=== PATIENT | male | born 1950 | race Caucasian/White ===

== ENCOUNTER → 2016-07-26 | Outpatient (CLI) | payer BC ==
--- NOTE | 2016-07-26 15:32 | US ---
EXAMINATION TYPE: US screen for AAA DATE OF EXAM: 07/26/2016 3:15 PM COMPARISON: CT on PACS CLINICAL HISTORY: Pt states AAA seen on CT study . EXAM MEASUREMENTS: Abdominal Aorta: Proximal: 2.6x 2.3 cm Mid: 5.2 x 4.9 cm Distal: 2.0 x 1.7 cm Bifurcation: 1.3 cm 1.0 cm IMPRESSION: AAA Mid Aorta. Lumen = 2.2 x 2.2 cm
== END | disposition home or self-care (01) ==
LOC: RADUSWWP 14:49
PROVIDERS: ATTEND Family Medicine
DX: I71.4 Abdominal aortic aneurysm, without rupture (principal)
CPT/HCPCS: 93979

== ENCOUNTER 2017-06-06 21:00 | Inpatient (IN) | payer BC, MEDICARE ==
[2017-06-06] MEDS ORDERED: methylPREDNISolone SOD SUCCI 125 MG/2 ML VIAL IV STA (21:20)
[2017-06-06] MEDS ORDERED: IPRATROPIUM-ALBUTEROL 3 ML NEB INHALATION STA (21:20)
[2017-06-06] MEDS ORDERED: HYDROmorphone 1 MG/ML 1 ML SYRINGE IVP STA (21:21)
--- NOTE | 2017-06-06 21:26 | ED ---
SOB HPI - General Chief Complaint: Shortness of Breath Stated Complaint: Back Pain/SOB Time Seen by Provider: 06/06/17 21:15 Source: patient Mode of arrival: ambulatory Limitations: no limitations - History of Present Illness Initial Comments: This 58-year-old white male presents with a complaint of a cough and shortness of breath. He's had this for approximately 10 days. He was seen by his primary care physician last week and was placed on Levaquin. He initially was having a greenish production states that the antibiotics seem to help get rid of the greenish production. Now he is only having a whitish production. He states that he quit smoking yesterday. He does have a history of COPD as well. He denies any fevers. He's been coughing significantly to the point that he thinks that he broke a rib. He has some pain in his inferior most ribs on the left posterior region. He has pain with any cough or increased inspiration in this area. He denies any leg pain or swelling or history of DVT or PE. He denies any anterior chest pain. There is no history of congestive heart failure or other cardiac disease. He relates some relief with a over-the- counter cough medication as well as with his nebulizer machine. He states that he has 2 pills of his Levaquin left. No other complaints or modifying factors. - Related Data Home Medications Medication Instructions Recorded Confirmed Albuterol Inhaler [Ventolin Hfa 1 - 2 puff INHALATION RT-Q6H PRN 06/06/17 Inhaler] Atorvastatin [Lipitor] 10 mg PO HS 06/06/17 06/06/17 Fluticasone/Salmeterol [Advair 1 inhalation PO RT-BID 06/06/17 06/06/17 500-50 Diskus] Losartan/Hydrochlorothiazide 1 tab PO DAILY 06/06/17 06/06/17 [Hyzaar 100-12.5 Tablet] Allergies Allergy/AdvReac Type Severity Reaction Status Date / Time Sulfa (Sulfonamide Allergy Rash/Hives Verified 06/06/17 22:01 Antibiotics) Review of Systems ROS Statement: Those systems with pertinent positive or pertinent negative responses have been documented in the HPI. ROS Other: All systems not noted in ROS Statement are negative. Past Medical History Past Medical History: Hyperlipidemia, Hypertension History of Any Multi-Drug Resistant Organisms: None Reported Past Surgical History: Heart Catheterization With Stent Additional Past Surgical History / Comment(s): femoral stent, aortic stent Past Psychological History: No Psychological Hx Reported Smoking Status: Current every day smoker Past Alcohol Use History: Rare Past Drug Use History: None Reported General Exam - General Exam Comments Initial Comments: GENERAL: The patient is well nourished and well hydrated. VITAL SIGNS: Heart rate, blood pressure, respiratory rate reviewed as recorded in nurse's notes. EYES: Pupils are round and reactive. Extraocular movements are intact. No conjunctival / lid redness or swelling. ENT: No external evidence of injury, swelling, or ecchymosis. Airway is patent. Throat is clear. NECK: Nontender. No swelling or evidence of injury. No subcutaneous emphysema. Trachea is midline. No thyroid mass. HEART: Regular rate and rhythm. Good peripheral pulses. LUNGS/CHEST: There is decreased respirations noted bilaterally. No ecchymosis, subcutaneous emphysema. There is some tenderness noted to the inferior posterior left ribs. ABDOMEN: Abdomen soft without tenderness. No palpable masses or organomegaly. No peritoneal signs. No abdominal wall swelling or ecchymosis. EXTREMITIES: No extremity tenderness. Normal muscle tone and function. No thoracolumbar tenderness. NEUROLOGIC: Sensation is grossly intact. Cranial nerve exam reveals face is symmetrical, tongue is midline, speech is clear. SKIN: No abrasions or ecchymosis is noted. No induration or masses noted. PSYCHIATRIC: Alert and oriented. Appropriate behavior and judgment. Limitations: no limitations Course Vital Signs 06/06/17 06/06/17 06/06/17 21:03 21:36 21:43 Temperature 97.6 F Pulse Rate 95 84 86 Respiratory 20 Rate Blood Pressure 142/73 O2 Sat by Pulse 93 L Oximetry 06/06/17 22:29 Temperature Pulse Rate 80 Respiratory 20 Rate Blood Pressure 179/79 O2 Sat by Pulse 94 L Oximetry Medical Decision Making - Medical Decision Making The patient was seen and examined. All diagnostics were reviewed. An IV is started and he receives 0.5 mg of Dilaudid for his rib pain. He also was placed on a shelter advocate no ectopy is identified. He receives a DuoNeb breathing treatment as well as some Solu-Medrol. The EKG shows a normal sinus rhythm at a rate of 86. There is no acute ST-T wave changes identified. The RI intervals 140, QRS duration is 102, and the QTC intervals 457. The laboratories reviewed and is overall fairly unremarkable except for a elevated d -dimer. A chest x-ray did not show any acute processes. The computed tomography scan of the thorax does not show any evidence of pulmonary embolism. It does show evidence of a pleural consolidation in the left inferior thorax posteriorly. This is where he is having his current pain. There is no evidence of rib fracture. Is felt that he does have a pneumonia in this area. This felt as though he has failed outpatient treatment. He likely has an exacerbation of his COPD as well. He is counseled regarding tobacco abuse. He does see Dr. Barlow from pulmonology on an outpatient basis. The case is discussed with Dr. Quiroz from internal medicine and she is agreeable to admission with antibiotics of Zithromax and Rocephin and Dr. bhakta to consult. - Lab Data Result diagrams: 06/06/17 21:28 06/06/17 21:28 Lab Results 06/06/17 06/06/17 06/06/17 Range/Units 21:28 21:28 21:28 WBC 10.2 (3.8-10.6) k/uL RBC 5.13 (4.30-5.90) m/uL Hgb 14.7 (13.0-17.5) gm/dL Hct 45.6 (39.0-53.0) % MCV 89.0 (80.0-100.0) fL MCH 28.6 (25.0-35.0) pg MCHC 32.2 (31.0-37.0) g/dL RDW 16.0 H (11.5-15.5) % Plt Count 191 (150-450) k/uL Neutrophils % 80 % Lymphocytes % 9 % Monocytes % 5 % Eosinophils % 5 % Basophils % 1 % Neutrophils # 8.2 H (1.3-7.7) k/uL Lymphocytes # 0.9 L (1.0-4.8) k/uL Monocytes # 0.5 (0-1.0) k/uL Eosinophils # 0.5 (0-0.7) k/uL Basophils # 0.1 (0-0.2) k/uL Anisocytosis Slight PT (9.0-12.0) sec INR (<1.2) APTT (22.0-30.0) sec D-Dimer (<0.60) mg/L FEU Sodium 138 (137-145) mmol/L Potassium 3.7 (3.5-5.1) mmol/L Chloride 102 (98-107) mmol/L Carbon Dioxide 28 (22-30) mmol/L Anion Gap 8 mmol/L BUN 26 H (9-20) mg/dL Creatinine 1.30 H (0.66-1.25) mg/dL Est GFR (MDRD) Af Amer >60 (>60 ml/min/1.73 sqM) Est GFR (MDRD) Non-Af 55 (>60 ml/min/1.73 sqM) Glucose 96 (74-99) mg/dL Calcium 9.6 (8.4-10.2) mg/dL Total Bilirubin 0.7 (0.2-1.3) mg/dL AST 25 (17-59) U/L ALT 42 (21-72) U/L Alkaline Phosphatase 72 (38-126) U/L Total Creatine Kinase 221 H (55-170) U/L CK-MB (CK-2) 5.5 H* (0.0-2.4) ng/mL CK-MB (CK-2) Rel Index 2.5 Troponin I <0.012 (0.000-0.034) ng/mL NT-Pro-B Natriuret Pep pg/mL Total Protein 6.1 L (6.3-8.2) g/dL Albumin 3.5 (3.5-5.0) g/dL 06/06/17 06/06/17 Range/Units 21:28 21:28 WBC (3.8-10.6) k/uL RBC (4.30-5.90) m/uL Hgb (13.0-17.5) gm/dL Hct (39.0-53.0) % MCV (80.0-100.0) fL MCH (25.0-35.0) pg MCHC (31.0-37.0) g/dL RDW (11.5-15.5) % Plt Count (150-450) k/uL Neutrophils % % Lymphocytes % % Monocytes % % Eosinophils % % Basophils % % Neutrophils # (1.3-7.7) k/uL Lymphocytes # (1.0-4.8) k/uL Monocytes # (0-1.0) k/uL Eosinophils # (0-0.7) k/uL Basophils # (0-0.2) k/uL Anisocytosis PT 11.8 (9.0-12.0) sec INR 1.2 H (<1.2) APTT 19.0 L (22.0-30.0) sec D-Dimer 1.32 H (<0.60) mg/L FEU Sodium (137-145) mmol/L Potassium (3.5-5.1) mmol/L Chloride (98-107) mmol/L Carbon Dioxide (22-30) mmol/L Anion Gap mmol/L BUN (9-20) mg/dL Creatinine (0.66-1.25) mg/dL Est GFR (MDRD) Af Amer (>60 ml/min/1.73 sqM) Est GFR (MDRD) Non-Af (>60 ml/min/1.73 sqM) Glucose (74-99) mg/dL Calcium (8.4-10.2) mg/dL Total Bilirubin (0.2-1.3) mg/dL AST (17-59) U/L ALT (21-72) U/L Alkaline Phosphatase (38-126) U/L Total Creatine Kinase (55-170) U/L CK-MB (CK-2) (0.0-2.4) ng/mL CK-MB (CK-2) Rel Index Troponin I (0.000-0.034) ng/mL NT-Pro-B Natriuret Pep 390 pg/mL Total Protein (6.3-8.2) g/dL Albumin (3.5-5.0) g/dL Disposition Clinical Impression: Hypoxia, Hypertension, Tobacco abuse, Failure of outpatient treatment, Community acquired pneumonia, Thoracic back pain, Acute exacerbation of chronic obstructive airways disease Disposition: ADMITTED IP TO THIS HOSP Condition: Fair Time of Disposition: 00:13 Decision Date: 06/07/17 Decision Time: 00:13
[2017-06-06] MEDS ORDERED: HYDROmorphone 0.5 MG/0.5 ML SYRINGE IVP STA (21:36)
[2017-06-06 21:43] LABS: Anisocytosis Slight; Basophils # (A) 0.1 k/uL (0-0.2); Basophils % (A) 1 %; CH 29.2; Eosinophils # (A) 0.5 k/uL (0-0.7); Eosinophils % (A) 5 %; HCT 45.6 % (39.0-53.0); HDW 2.32; HGB 14.7 gm/dL (13.0-17.5); Luc # (Auto) 0.09; Luc % (Auto) 1; Lymphocytes # (A) 0.9 k/uL (1.0-4.8); Lymphocytes % (A) 9 %; MCH 28.6 pg (25.0-35.0); MCHC 32.2 g/dL (31.0-37.0); Mean Platelet Volume 7.1; Monocytes # (A) 0.5 k/uL (0-1.0); Monocytes % (A) 5 %; Neutrophils # (A) 8.2 k/uL (1.3-7.7); Neutrophils % (A) 80 %; RBC 5.13 m/uL (4.30-5.90); WBC 10.2 k/uL (3.8-10.6); WBC (Perox) 10.19
[2017-06-06 21:54] LABS: ALT 42 U/L (21-72); AST 25 U/L (17-59); Alkaline Phosphatase 72 U/L (38-126); Anion Gap 8 mmol/L; Blood Urea Nitrogen 26 mg/dL (9-20); Calcium 9.6 mg/dL (8.4-10.2); Carbon Dioxide 28 mmol/L (22-30); Chloride 102 mmol/L (98-107); Glucose 96 mg/dL (74-99); Non-African American GFR(MDRD) 55 (>60 ml/min/1.73 sqM); Potassium 3.7 mmol/L (3.5-5.1); Sodium 138 mmol/L (137-145); Total Bilirubin 0.7 mg/dL (0.2-1.3); Total Protein 6.1 g/dL (6.3-8.2)
[2017-06-06 22:03] LABS: Creatine Kinase 221 U/L (55-170)
--- NOTE | 2017-06-06 22:09 | XR ---
EXAMINATION TYPE: XR chest 2V DATE OF EXAM: 06/06/2017 COMPARISON: 08/26/2012 HISTORY: Difficulty breathing TECHNIQUE: Frontal and lateral views of the chest are obtained. FINDINGS: Heart and mediastinum are normal. Lungs are clear of consolidation. Pulmonary vascularity is normal. Heart size is normal. There are chest leads. Bony thorax is intact. IMPRESSION: Normal chest. No change.
[2017-06-06 22:12] LABS: INR 1.2 (<1.2); Prothrombin Time 11.8 sec (9.0-12.0)
[2017-06-06 22:16] LABS: Troponin I <0.012 ng/mL (0.000-0.034)
[2017-06-06 22:24] LABS: Creatine Kinase MB 5.5 ng/mL (0.0-2.4)
[2017-06-06] MEDS ORDERED: RX INFO: IV CONTRAST WAS GIVEN 1 EACH MISC MISCELLANE PRN (22:50)
--- NOTE | 2017-06-06 23:44 | CT ---
EXAMINATION TYPE: CT angio chest DATE OF EXAM: 06/06/2017 11:20 PM COMPARISON: NONE HISTORY: cough, elevated d-dimer CT DLP: 389 mGycm Automated exposure control for dose reduction was used. CONTRAST: CTA scan of the thorax is performed with IV Contrast, patient injected with 70 mL of Visipaque 320, p ulmonary embolism protocol. There are 3-D post processed images.. FINDINGS: There is mild bullous emphysema. There is no evidence of a pulmonary mass. Heart size is normal. Ther e is no pericardial effusion. There is no pleural effusion. There is some mild subpleural interstitia l density at the left posterior lung base. Thoracic aorta appears normal. There is no sign of aneurysm or dissection. Ascending aorta measures 3 .8 cm. I see no filling defects in the pulmonary arteries. There is no mediastinal adenopathy. There are no hilar masses. There are a few bronchial lymph nodes that measure up to 1 cm. The bony thorax appears intact. IMPRESSION: NO EVIDENCE OF PULMONARY EMBOLISM. THERE IS MILD PLEURAL REACTION AND ATELECTASIS AT THE LEFT POSTERI OR LUNG BASE. MINIMAL ATHEROSCLEROTIC VASCULAR DISEASE. EMPHYSEMA.
[2017-06-07] MEDS ORDERED: PNEUMONIA PROTOCOL UTILIZED 1 EACH MISC PO PRN (00:19)
[2017-06-07] MEDS ORDERED: IPRATROPIUM-ALBUTEROL 3 ML NEB INHALATION PRN (00:19)
[2017-06-07] MEDS ORDERED: cefTRIAXone IN SWFI 1,000 MG/10 ML SYRINGE IVP STA (00:19)
[2017-06-07] MEDS ORDERED: HYDROcodone/APAP 7.5-325MG 1 EACH TAB PO PRN (00:24)
[2017-06-07 01:56] VITALS: RESP 20
[2017-06-07] MEDS ORDERED: SYMBICORT 160-4.5 MCG INHALER INHALATION SCH (08:00)
[2017-06-07 08:27] VITALS: BP 148/72; TEMP 98.4
[2017-06-07] MEDS ORDERED: NON-FORMULARY DRUG (Losartan/Hydrochlorothiazide [Hyzaar 100-12.5 Tablet] 1 TAB) PO SCH (09:00)
[2017-06-07] MEDS ORDERED: HYDROCHLOROTHIAZIDE 12.5 MG CAP PO SCH (09:00)
[2017-06-07] MEDS ORDERED: AZITHROMYCIN 500 MG in SODIUM CHLORIDE 0.9% 250 ML IVPB SCH (09:00)
[2017-06-07] MEDS ORDERED: methylPREDNISolone SOD SUCCI 125 MG/2 ML VIAL IV SCH ×2 (09:00→21:00)
[2017-06-07] MEDS ORDERED: ENOXAPARIN 40 MG/0.4 ML SYRINGE SQ SCH (09:00)
[2017-06-07] MEDS ORDERED: LOSARTAN 50 MG TAB PO SCH (09:00)
--- NOTE | 2017-06-07 10:17 | P.CNPUL ---
History of Present Illness Consult date: 06/07/17 Reason for consult: dyspnea, cough, chest pain Chief complaint: Cough, rib pain History of present illness: This is a 66-year-old gentleman who presented emergency department complaining of cough and shortness of breath. The patient states this started about 8 days ago and he went to see his primary care physician. His primary care physician started him on Levaquin which she has taken for the last 8 days. He was also given steroids. He states his phlegm was green however it is now white. He denies any fevers or chills. He does have a history of COPD and asthma and follows with Dr. MEERA Barlow in the office. He states he smoked 1 pack per day for about 50 years. He states he had severe left-sided rib pain and felt like he had broken a rib. He came to the hospital when the pain became unbearable. He does take Advair, Ventolin, albuterol nebs at home. He does not wear home oxygen. He states he does have wheezing on and off. Review of Systems All systems: negative Past Medical History Past Medical History: Hyperlipidemia, Hypertension, Pneumonia, Respiratory Disorder History of Any Multi-Drug Resistant Organisms: None Reported Past Surgical History: Heart Catheterization With Stent Additional Past Surgical History / Comment(s): femoral stent, aortic stent Past Anesthesia/Blood Transfusion Reactions: No Reported Reaction Date of Last Stent Placement:: aug 25 2016 Past Psychological History: No Psychological Hx Reported Smoking Status: Former smoker Past Alcohol Use History: Rare Past Drug Use History: None Reported - Past Family History Mother Family Medical History: Coronary Artery Disease (CAD), Hypertension Medications and Allergies Home Medications Medication Instructions Recorded Confirmed Type Albuterol Inhaler [Ventolin Hfa 1 - 2 puff INHALATION RT-Q6H PRN 06/06/17 History Inhaler] Atorvastatin [Lipitor] 10 mg PO HS 06/06/17 06/06/17 History Fluticasone/Salmeterol [Advair 1 inhalation PO RT-BID 06/06/17 06/06/17 History 500-50 Diskus] Losartan/Hydrochlorothiazide 1 tab PO DAILY 06/06/17 06/06/17 History [Hyzaar 100-12.5 Tablet] Allergies Allergy/AdvReac Type Severity Reaction Status Date / Time Sulfa (Sulfonamide Allergy Rash/Hives Verified 06/06/17 22:01 Antibiotics) Physical Exam Osteopathic Statement: *. No significant issues noted on an osteopathic structural exam other than those noted in the History and Physical/Consult. Vitals: Vital Signs Temp Pulse Pulse Resp BP BP Pulse Ox 06/07/17 07:16 98 96 06/07/17 07:00 98.4 F 78 20 148/72 95 06/07/17 02:00 84 20 06/07/17 01:45 97.3 F L 84 20 135/65 06/07/17 00:43 81 132/63 95 06/07/17 00:21 97.7 F 81 18 132/63 94 L 06/06/17 22:29 80 20 179/79 94 L 06/06/17 21:43 86 06/06/17 21:36 84 06/06/17 21:03 97.6 F 95 20 142/73 93 L Intake and Output 06/06/17 06/07/17 06/07/17 22:59 06:59 14:59 Other: # Voids 1 Weight 92.986 kg 95.708 kg Gen.: Patient is alert and oriented 3, no acute distress, obese Cardiovascular: Regular rate and rhythm, S1/S2 Lungs: Diminished breath sounds bilaterally no wheezes rales or rhonchi Abdomen: Soft nontender nondistended positive bowel sounds Extremities: No edema Results - Laboratory Findings CBC and BMP: 06/06/17 21:28 06/06/17 21:28 PT/INR, D-dimer PT 11.8 sec (9.0-12.0) 06/06/17 21:28 INR 1.2 (<1.2) H 06/06/17 21:28 D-Dimer 1.32 mg/L FEU (<0.60) H 06/06/17 21:28 Abnormal lab findings: Abnormal Labs 06/06/17 06/06/17 06/06/17 21:28 21:28 21:28 RDW 16.0 H Neutrophils # 8.2 H Lymphocytes # 0.9 L INR APTT D-Dimer BUN 26 H Creatinine 1.30 H Total Creatine Kinase 221 H CK-MB (CK-2) 5.5 H* Total Protein 6.1 L 06/06/17 21:28 RDW Neutrophils # Lymphocytes # INR 1.2 H APTT 19.0 L D-Dimer 1.32 H BUN Creatinine Total Creatine Kinase CK-MB (CK-2) Total Protein - Diagnostic Findings Chest x-ray: report reviewed, image reviewed CT scan - chest: report reviewed, image reviewed Assessment and Plan Assessment: Acute exacerbation of COPD Acute exacerbation of asthma, severe persistent Tracheobronchitis - resolving Pleurisy Atelectasis Active tobacco abuse Hypertension Dyslipidemia Obesity Coronary artery disease Peripheral vascular disease O2 to maintain saturation greater than or equal to 90% Bronchodilators Pulmicort Solu-Medrol Anti-inflammatories - Toradol Pain control Incentive spirometry and pulmonary hygiene Smoking cessation is highly recommended No need for ABX from pulmonary standpoint - patient has had 8 days of Levaquin Continue patient's home medications Thank you for this consultation. We will continue to follow along.
[2017-06-07 11:57] VITALS: PULSE 88
[2017-06-07] MEDS ORDERED: IPRATROPIUM-ALBUTEROL 3 ML NEB INHALATION SCH (12:00)
[2017-06-07] MEDS ORDERED: KETOROLAC 30 MG/ML 1 ML VIAL IVP SCH (12:00)
--- NOTE | 2017-06-07 16:02 | P.HPIM ---
History of Present Illness H&P Date: 06/07/17 Chief Complaint: Chest pain HISTORY AND PHYSICAL AND DISCHARGE SUMMARY: This is a 66-year-old male patient of Dr. Patrick Pineda with a past medical history of COPD, hyperlipidemia, hypertension, pneumonia, chest and abdominal aneurysm status post stenting. Patient gives history that 8 days ago he was seen by Dr. Pineda was complaining of cough with green sputum production and was placed on antibiotics and steroids. Subsequently he developed pain in his chest he thought he broke a rib he was coughing so hard. He has taken a cough suppressan . His became very concerned about him and wanted to come into the hospital for evaluation. Patient denies having any lower extremity edema, no fever or chills, a little short of breath. He is able to ambulate without difficulty. He denies any dizziness. No diarrhea or constipation. He states the pain was so bad it dropped him to his knees. His white count was normal. Troponin negative. Chest x-ray was normal. CTA of the chest showed no evidence of pallor embolism. Mild pleural reaction and atelectasis at the left posterior lung base. Minimal atherosclerotic vascular disease. Emphysema. Patient was placed on the Med[facility] floor and was seen in consultation by Dr. Chapman and she recommended no antibiotics. Patient was very anxious to be discharged. He states his pain was improved. Patient will be discharged home today in stable condition. Review of Systems All systems: negative Constitutional: Denies chills, Denies fever Eyes: denies blurred vision, denies pain Ears, nose, mouth and throat: Denies headache, Denies sore throat Cardiovascular: Reports chest pain, Reports shortness of breath Respiratory: Denies cough Gastrointestinal: Denies abdominal pain, Denies diarrhea, Denies nausea, Denies vomiting Musculoskeletal: Denies myalgias Integumentary: Denies pruritus, Denies rash Neurological: Denies numbness, Denies weakness Psychiatric: Denies anxiety, Denies depression Endocrine: Denies fatigue, Denies weight change Past Medical History Past Medical History: COPD, Hyperlipidemia, Hypertension, Pneumonia Additional Past Medical History / Comment(s): Thoracic and abdominal aortic aneurysm History of Any Multi-Drug Resistant Organisms: None Reported Past Surgical History: Cholecystectomy, Heart Catheterization With Stent Additional Past Surgical History / Comment(s): femoral stent/bypass, aortic stent Past Anesthesia/Blood Transfusion Reactions: No Reported Reaction Date of Last Stent Placement:: aug 25 2016 Past Psychological History: No Psychological Hx Reported Smoking Status: Former smoker Past Alcohol Use History: Rare Past Drug Use History: None Reported - Past Family History Mother Family Medical History: Coronary Artery Disease (CAD), Hypertension Additional Family Medical History / Comment(s): Mother from massive coronary with history of hypertension. Father Additional Family Medical History / Comment(s): Father from an abdominal aneurysm. He had history of rectal cancer. Sister(s) Additional Family Medical History / Comment(s): Patient has 2 sisters both have COPD and one also has coronary artery disease. Patient does not have any brothers. Patient has one son that is overweight. Medications and Allergies Home Medications Medication Instructions Recorded Confirmed Type Albuterol Inhaler [Ventolin Hfa 1 - 2 puff INHALATION RT-Q6H PRN 06/06/17 History Inhaler] Atorvastatin [Lipitor] 10 mg PO HS 06/06/17 06/06/17 History Fluticasone/Salmeterol [Advair 1 inhalation PO RT-BID 06/06/17 06/06/17 History 500-50 Diskus] Losartan/Hydrochlorothiazide 1 tab PO DAILY 06/06/17 06/06/17 History [Hyzaar 100-12.5 Tablet] Famotidine [Pepcid] 20 mg PO BID #30 tablet 06/07/17 Rx Naproxen 250 mg PO BID #60 tablet 06/07/17 Rx predniSONE 40 mg PO DAILY #10 tab 06/07/17 Rx Allergies Allergy/AdvReac Type Severity Reaction Status Date / Time Sulfa (Sulfonamide Allergy Rash/Hives Verified 06/06/17 22:01 Antibiotics) Physical Exam Vitals: Vital Signs Temp Pulse Pulse Resp BP BP Pulse Ox 06/07/17 07:16 98 96 06/07/17 07:00 98.4 F 78 20 148/72 95 06/07/17 02:00 84 20 06/07/17 01:45 97.3 F L 84 20 135/65 06/07/17 00:43 81 132/63 95 06/07/17 00:21 97.7 F 81 18 132/63 94 L 06/06/17 22:29 80 20 179/79 94 L 06/06/17 21:43 86 06/06/17 21:36 84 06/06/17 21:03 97.6 F 95 20 142/73 93 L Intake and Output 06/06/17 06/07/17 06/07/17 22:59 06:59 14:59 Intake Total 240 Balance 240 Intake: Oral 240 Other: # Voids 1 Weight 92.986 kg 95.708 kg Gen: This is a 66-year-old male patient sitting up in bed and appears to be in no acute distress. No respiratory distress noted. HEENT: Head is atraumatic, normocephalic. Pupils equal, round. Sclerae is anicteric. NECK: Supple. No JVD. No lymphadenopathy. No thyromegaly. LUNGS: Diminished. No wheezes or rhonchi. No intercostal retractions. HEART: Regular rate and rhythm. No murmur. ABDOMEN: Soft. Bowel sounds are present. No masses. No tenderness. EXTREMITIES: No pedal edema. No calf tenderness. NEUROLOGICAL: Patient is awake, alert and oriented x3. Cranial nerves 2 through 12 are grossly intact. Results CBC & Chem 7: 06/06/17 21:28 06/06/17 21:28 Labs: Abnormal Lab Results - Last 24 Hours (Table) 06/06/17 06/06/17 06/06/17 Range/Units 21:28 21:28 21:28 RDW 16.0 H (11.5-15.5) % Neutrophils # 8.2 H (1.3-7.7) k/uL Lymphocytes # 0.9 L (1.0-4.8) k/uL INR (<1.2) APTT (22.0-30.0) sec D-Dimer (<0.60) mg/L FEU BUN 26 H (9-20) mg/dL Creatinine 1.30 H (0.66-1.25) mg/dL Total Creatine Kinase 221 H (55-170) U/L CK-MB (CK-2) 5.5 H* (0.0-2.4) ng/mL Total Protein 6.1 L (6.3-8.2) g/dL 06/06/17 Range/Units 21:28 RDW (11.5-15.5) % Neutrophils # (1.3-7.7) k/uL Lymphocytes # (1.0-4.8) k/uL INR 1.2 H (<1.2) APTT 19.0 L (22.0-30.0) sec D-Dimer 1.32 H (<0.60) mg/L FEU BUN (9-20) mg/dL Creatinine (0.66-1.25) mg/dL Total Creatine Kinase (55-170) U/L CK-MB (CK-2) (0.0-2.4) ng/mL Total Protein (6.3-8.2) g/dL Thrombosis Risk Factor Assmnt - Choose All That Apply Any of the Below Risk Factors Present?: Yes Each Factor Represents 1 point: Abnormal pulmonary function (COPD), Obesity ( BMI >25), Serious lung disease incl. pneumonia (< 1month) Other Risk Factors: Yes Each Risk Factor Represents 2 Points: Age 61-74 years Other congenital or acquired thrombophilia - If yes, enter type in comment: No Thrombosis Risk Factor Assessment Total Risk Factor Score: 5 Thrombosis Risk Factor Assessment Level: High Risk Assessment and Plan Plan: 1. Pleuritic-like chest pain. Prednisone 40 mg daily 5, Naproxen 250 mg twice daily and Pepcid ordered. 2. COPD. Continue Ventolin inhaler and Advair. 3. Hyperlipidemia. Continue Lipitor. 4. Hypertension. Continue Hyzaar. Patient will be admitted to the hospital for a minimum of 2 night stay. Discharge plan: RETURN HOME Impression and plan of care have been directed as dictated by the signing physician. Kourtney Jack nurse practitioner acting as scribe for signing physician.
[2017-06-07] MEDS ORDERED: BUDESONIDE 0.5 MG/2 ML NEBU INHALATION SCH (20:00)
[2017-06-07] MEDS ORDERED: ATORVASTATIN 10 MG TAB PO SCH (21:00)
[2017-06-08] MEDS ORDERED: cefTRIAXone IN SWFI 1,000 MG/10 ML SYRINGE IVP SCH (04:00)
[2017-06-08] MEDS ORDERED: PANTOPRAZOLE 40 MG TABLET PO SCH (07:30)
== END 2017-06-07 14:13 | disposition home or self-care (01) | DRG 191 ==
LOC: EC 21:00 → 4MS4W 06-07 00:19
PROVIDERS: ADMIT Internal Medicine; ATTEND Internal Medicine
DX: J44.1 Chronic obstructive pulmonary disease with (acute) exacerbation (principal); J45.51 Severe persistent asthma with (acute) exacerbation; J98.11 Atelectasis; I10 Essential (primary) hypertension; E78.5 Hyperlipidemia, unspecified; E66.9 Obesity, unspecified; I25.10 Atherosclerotic heart disease of native coronary artery without angina pectoris; I73.9 Peripheral vascular disease, unspecified; R09.1 Pleurisy; I71.4 Abdominal aortic aneurysm, without rupture; F17.200 Nicotine dependence, unspecified, uncomplicated; Z68.30 Body mass index [BMI] 30.0-30.9, adult; Z79.899 Other long term (current) drug therapy; Z88.2 Allergy status to sulfonamides; Z95.5 Presence of coronary angioplasty implant and graft; Z82.49 Family history of ischemic heart disease and other diseases of the circulatory system
CPT/HCPCS: 36415; 71020; 71275; 80053; 82550; 82553; 83880; 84484; 85025; 85379; 85610; 85730; 87040; 87070; 87205; 93005; 94640; 94760; 96374; 96375; 99285

== ENCOUNTER → 2018-02-23 | Day surgery (SDC) | payer BC, MEDICARE ==
[2018-02-22 08:46] VITALS: BMI 28.7
[~2018-02-23] MED LIST: LACTATED RINGERS 1,000 ML IV SCH; LIDOCAINE 1% 20 ML VIAL (10MG/ML) FOR IV START INTRADERMA PRN; LIDOCAINE 1% INJ 10MG/ML (20 ML MDV) ONE; PROPOFOL 10 MG/ML 20 ML VIAL IV ONE
[2018-02-23 11:49] VITALS: RESP 16; TEMP 97.3
--- NOTE | 2018-02-23 13:14 | P.PCN ---
Date of Procedure: 02/23/18 Procedure(s) Performed: BRIEF HISTORY: Patient is a 67-year-old pleasant male, scheduled for an elective colonoscopy as a part of value should of prior history of colon polyps. Last colonoscopy was 6 years ago. PROCEDURE PERFORMED: Colonoscopy with snare polypectomy. PREOPERATIVE DIAGNOSIS: History of colon polyps IV sedation per Anesthesia. PROCEDURE: After informed consent was obtained, the patient, was brought into the endoscopy unit. IV sedation was administered by Anesthesia under continuous monitoring. Digital rectal examination was normal. Initially the Olympus CF- 160 flexible video colonoscope was then inserted in the rectum, gradually advanced into the cecum without any difficulty. Careful examination was performed as the scope was gradually being withdrawn. Ileocecal valve and the appendiceal orifice were visualized and appeared normal. Prep was excellent. Mucosa of the cecum, appeared normal. Ascending colon there was a 5 mm sessile polyp removed by snare polypectomy. In the proximal transverse colon there were 2 polyps both of which were sessile measuring 2-3 mm in size removed by snare polypectomy. In the proximal sigmoid colon at 4o cm from the anal verge there was a 1 cm broad-based polyp removed by snare polypectomy. In the proximal rectosigmoid colon at 25 cm from the anal verge there was another 1 cm polyp removed by snare polypectomy. Scattered sigmoid diverticulosis seen. Rest of the ascending colon, transverse colon, descending colon, sigmoid colon, and rectum appeared normal. Retroflexion was performed in the rectum and no lesions were seen. Scattered sigmoid diverticulosis seen. The patient tolerated the procedure well. IMPRESSION: 5 mm sessile ascending colon polyp serous was snare polypectomy 2-3 mm 2 transverse colon polyps status post polypectomy 1 cm proximal sigmoid colon polyp serous was snare polypectomy 1 cm pedunculated proximal rectosigmoid polyp status post polypectomy Scattered sigmoid diverticulosis RECOMMENDATIONS: Findings of this examination were discussed with the patient well as her family. He was advised to follow with the biopsy results. He can have a repeat colonoscopy in 3 years.
[2018-02-23 13:19] VITALS: PULSE 78
[2018-02-23 13:28] VITALS: BP 118/72
== END ==
LOC: ORWHC2ENDO 10:52
PROVIDERS: ATTEND Internal Medicine Gastroenterology
DX: Z12.11 Encounter for screening for malignant neoplasm of colon (principal); D12.5 Benign neoplasm of sigmoid colon; D12.3 Benign neoplasm of transverse colon; D12.7 Benign neoplasm of rectosigmoid junction; K63.5 Polyp of colon; K57.30 Diverticulosis of large intestine without perforation or abscess without bleeding; Z86.010 Personal history of colon polyps; I10 Essential (primary) hypertension; E78.5 Hyperlipidemia, unspecified; J44.9 Chronic obstructive pulmonary disease, unspecified; Z72.0 Tobacco use; I73.9 Peripheral vascular disease, unspecified; I71.6 Thoracoabdominal aortic aneurysm, without rupture; Z79.899 Other long term (current) drug therapy; Z88.2 Allergy status to sulfonamides
CPT/HCPCS: 88305; 45385; J2001; J2704; 45380

== ENCOUNTER 2019-03-17 12:37 | Emergency (ER) | payer BC ==
[2019-03-17 13:01] VITALS: RESP 18; TEMP 97.6
[2019-03-17] MEDS ORDERED: SODIUM CHLORIDE 0.9% 500 ML 500 ML IV ONE (13:07)
[2019-03-17] MEDS ORDERED: HYDROcodone/APAP 7.5-325MG 1 EACH TAB PO ONE (13:25)
--- NOTE | 2019-03-17 13:29 | ED ---
Extremity Problem HPI - General Chief complaint: Extremity Problem,Nontraumatic Stated complaint: Leg pain Time Seen by Provider: 03/17/19 12:52 Source: patient, RN notes reviewed Mode of arrival: wheelchair Limitations: no limitations - History of Present Illness Initial comments: 68-year-old male presents emergency Department chief complaint of right leg pain. Patient states it's been progressive worsening of last 1 month. Patient has a history of small bypass in the right and states pain seems similar to his history. Patient states that he has a follow-up in May with his surgeon at [facility]. Patient denies any discoloration of his lower extremity patient states pain is worse with movement. Patient denies any swelling, fever or chill s no trauma. - Related Data Home Medications Medication Instructions Recorded Confirmed Albuterol Inhaler [Ventolin Hfa 1 - 2 puff INHALATION RT-Q6H PRN 06/06/17 Inhaler] Atorvastatin [Lipitor] 10 mg PO HS 06/06/17 02/23/18 Fluticasone/Salmeterol [Advair 1 puff INHALATION RT-BID 06/06/17 02/23/18 500-50 Diskus] Albuterol Nebulized [Ventolin 2.5 mg INHALATION RT-QID 06/13/17 02/23/18 Nebulized] Losartan/Hydrochlorothiazide 1 tab PO DAILY 06/13/17 02/23/18 [Losartan-Hctz 100-25 mg Tab] Montelukast [Singulair] 10 mg PO HS 06/13/17 02/23/18 Previous Rx's Medication Instructions Recorded Cyclobenzaprine [Flexeril] 10 mg PO TID PRN #15 tab 03/17/19 HYDROcodone/APAP 10-325MG [[place] 1 tab PO Q6H PRN #15 tab 03/17/19 10-325] HYDROcodone/APAP 10-325MG [[place] 1 tab PO Q6H PRN #15 tab 03/17/19 10-325] Ibuprofen [Motrin] 600 mg PO Q8HR PRN #30 tab 03/17/19 Allergies Allergy/AdvReac Type Severity Reaction Status Date / Time Sulfa (Sulfonamide Allergy Rash/Hives Verified 03/17/19 13:01 Antibiotics) Review of Systems ROS Statement: Those systems with pertinent positive or pertinent negative responses have been documented in the HPI. ROS Other: All systems not noted in ROS Statement are negative. Past Medical History Past Medical History: COPD, Hyperlipidemia, Hypertension, Pneumonia Additional Past Medical History / Comment(s): Thoracic and abdominal aortic aneurysm History of Any Multi-Drug Resistant Organisms: None Reported Past Surgical History: Cholecystectomy, Heart Catheterization With Stent, Orthopedic Surgery Additional Past Surgical History / Comment(s): femoral stent/bypass, aortic stent,rt shoulder injury Past Anesthesia/Blood Transfusion Reactions: No Reported Reaction Date of Last Stent Placement:: aug 25 2016 Past Psychological History: No Psychological Hx Reported Smoking Status: Current every day smoker Past Alcohol Use History: Occasional - Past Family History Mother Family Medical History: Coronary Artery Disease (CAD), Hypertension Additional Family Medical History / Comment(s): Mother from massive coronary with history of hypertension. Father Additional Family Medical History / Comment(s): Father from an abdominal aneurysm. He had history of rectal cancer. Sister(s) Additional Family Medical History / Comment(s): Patient has 2 sisters both have COPD and one also has coronary artery disease. Patient does not have any brothers. Patient has one son that is overweight. General Exam Limitations: no limitations General appearance: alert, in no apparent distress Head exam: Present: atraumatic, normocephalic, normal inspection Respiratory exam: Present: normal lung sounds bilaterally. Absent: respiratory distress, wheezes, rales, rhonchi, stridor Cardiovascular Exam: Present: regular rate, normal rhythm, normal heart sounds. Absent: systolic murmur, diastolic murmur, rubs, gallop, clicks GI/Abdominal exam: Present: soft, normal bowel sounds. Absent: distended, tenderness, guarding, rebound, rigid Extremities exam: Present: other (Patient's full range of motion of the right extremity, posterior tibialis pulses palpable no dorsal pedis pulse palpable. Full strength equal bilaterally) Back exam: Present: full ROM. Absent: tenderness, paraspinal tenderness, vertebral tenderness Skin exam: Present: warm, dry, intact, normal color. Absent: rash Course Vital Signs 03/17/19 03/17/19 12:56 14:32 Temperature 97.6 F Pulse Rate 86 88 Respiratory 18 18 Rate Blood Pressure 152/83 138/77 O2 Sat by Pulse 94 L 98 Oximetry Medical Decision Making - Medical Decision Making 68-year-old male presents emergency Department with chief complaint of right leg pain. Patient's pain is progressively last 1 month. Patient did have labs and CT given the fact that he's had a history of fem-pop bypass. Patient's bypasses patently open. Patient has full flow on his right leg. There is questionable thrombus in his left posterior tibial though there is a 30 pulse with Doppler. This is felt to be chronic in nature and he has no pain or sympt oms on the left leg. Patient symptoms may be related to nerve pain as this is not reproducible and he does have complaints of some back discomfort. He has no red flag symptoms include bowel bladder incontinence or retention. Patient be treated with pain medication advised follow-up with his vascular surgeon and will be given referral to Dr. Roth for orthospine. - Lab Data Result diagrams: 03/17/19 13:27 03/17/19 13:27 Lab Results 03/17/19 03/17/19 Range/Units 13:27 13:27 WBC 6.9 (3.8-10.6) k/uL RBC 5.56 (4.30-5.90) m/uL Hgb 15.5 (13.0-17.5) gm/dL Hct 47.0 (39.0-53.0) % MCV 84.5 (80.0-100.0) fL MCH 27.9 (25.0-35.0) pg MCHC 33.0 (31.0-37.0) g/dL RDW 15.2 (11.5-15.5) % Plt Count 254 (150-450) k/uL Neutrophils % 75 % Lymphocytes % 14 % Monocytes % 7 % Eosinophils % 2 % Basophils % 1 % Neutrophils # 5.1 (1.3-7.7) k/uL Lymphocytes # 0.9 L (1.0-4.8) k/uL Monocytes # 0.5 (0-1.0) k/uL Eosinophils # 0.2 (0-0.7) k/uL Basophils # 0.1 (0-0.2) k/uL Sodium 136 L (137-145) mmol/L Potassium 5.0 (3.5-5.1) mmol/L Chloride 99 (98-107) mmol/L Carbon Dioxide 24 (22-30) mmol/L Anion Gap 13 mmol/L BUN 21 H (9-20) mg/dL Creatinine 1.19 (0.66-1.25) mg/dL Est GFR (CKD-EPI)AfAm 71 (>60 ml/min/1.73 sqM) Est GFR (CKD-EPI)NonAf 62 (>60 ml/min/1.73 sqM) Glucose 83 (74-99) mg/dL Calcium 9.5 (8.4-10.2) mg/dL Disposition Clinical Impression: Leg pain, right, Lumbar radicular pain, Arterial vascular disease Disposition: HOME SELF-CARE Condition: Stable Instructions (If sedation given, give patient instructions): Leg Pain (ED) Additional Instructions: Follow-up with your vascular surgeon this week for your leg pain. Please return to the Emergency Department if symptoms worsen or any other concerns. Prescriptions: Cyclobenzaprine [Flexeril] 10 mg PO TID PRN #15 tab PRN Reason: Muscle Spasm Ibuprofen [Motrin] 600 mg PO Q8HR PRN #30 tab PRN Reason: Pain HYDROcodone/APAP 10-325MG [[place] 10-325] 1 tab PO Q6H PRN #15 tab PRN Reason: pain HYDROcodone/APAP 10-325MG [[place] 10-325] 1 tab PO Q6H PRN #15 tab PRN Reason: pain Is patient prescribed a controlled substance at d/c from ED?: Yes When asked, does pt state using other controlled substances?: No If prescribed controlled substance>3 days was MAPS reviewed?: Prescribed <3 Days If opioid is for acute pain is fill amount 7 days or less?: Yes If Rx opioid, was Start Talking consent form obtained?: Yes Referrals: Patrick Pineda MD [Primary Care Provider] - 1-2 days Alonso Santiago DO [Doctor of Osteopathic Medicine] - 1-2 days Time of Disposition: 15:16
[2019-03-17 13:35] LABS: Basophils # (A) 0.1 k/uL (0-0.2); Basophils % (A) 1 %; Eosinophils # (A) 0.2 k/uL (0-0.7); Eosinophils % (A) 2 %; HGB 15.5 gm/dL (13.0-17.5); Lymphocytes # (A) 0.9 k/uL (1.0-4.8); Lymphocytes % (A) 14 %; MCH 27.9 pg (25.0-35.0); MCV 84.5 fL (80.0-100.0); Mean Platelet Volume 6.5; Monocytes # (A) 0.5 k/uL (0-1.0); Monocytes % (A) 7 %; Neutrophils # (A) 5.1 k/uL (1.3-7.7); Neutrophils % (A) 75 %; Platelet Count 254 k/uL (150-450); RBC 5.56 m/uL (4.30-5.90); RDW 15.2 % (11.5-15.5); WBC 6.9 k/uL (3.8-10.6)
[2019-03-17 13:45] LABS: Calcium 9.5 mg/dL (8.4-10.2)
[2019-03-17] MEDS ORDERED: MORPHINE SULFATE 4 MG/ML SYRINGE IVP STA (14:32)
[2019-03-17] MEDS ORDERED: ONDANSETRON 4 MG/2 ML VIAL IVP STA (14:32)
[2019-03-17 14:33] VITALS: BP 138/77; PULSE 88
--- NOTE | 2019-03-17 14:43 | CT ---
EXAMINATION TYPE: CT angio abd aorta w/Runoff DATE OF EXAM: 03/17/2019 COMPARISON: None HISTORY: Right calf pain. History of femoral bypass. CT DLP: 4037.7 mGycm, Automated Exposure Control for Dose Reduction was Utilized. CONTRAST: CT scan of the abdomen and pelvis down to the bottom of the feet is performed without oral and withou t and with IV Contrast, patient injected with 100 mL of Isovue 370. FINDINGS: There are 3-D post processed images. There is a stent in the mid abdominal aorta. There is mild aneur ysm of the midabdominal aorta measures up to 3.8 cm. The stent is widely patent. There is some thromb us within the stent without significant luminal narrowing. There is patency of the celiac artery and superior mesenteric artery. There is bilateral patency of the renal arteries. There is complete occlu tanya of the right common iliac artery. There is femoral-femoral bypass graft which appears patent. Th ere is arterial flow in the profunda femoris and superficial femoral arteries. There is diffuse plaqu e formation with luminal narrowing in the femoral arteries bilaterally. Stenosis is more than 50%. Th ere is bilateral arterial flow in the popliteal arteries. There is diffuse plaque in the popliteal ar teries. There is patency of the tibial arteries on the tibial artery trifurcation. There is bilateral anterio r tibial artery flow at the ankle. There is no flow seen in the left side posterior tibial artery. Th ere is arterial flow in the right side posterior tibial artery at the ankle. There is bilateral flow in the peroneal arteries. Bladder distends smoothly. There is no inguinal hernia. There is no sign of pelvic mass. I see no int estinal wall thickening. There is no mesenteric edema. There is no sign of ascites or free air. Kidneys have normal size and contour. There is no hydronephrosis. There is 2 cm cortical cyst posteri or left kidney. Spleen is intact. Liver is intact. Bile ducts are not dilated. There are clips from c holecystectomy. Stomach is intact. Lung bases show some interstitial infiltrate in the left lower lob e consistent with scarring and subsegmental atelectasis. There is no pleural effusion. IMPRESSION: Abdominal aortic aneurysm. Stent appears in good position with minimal thrombus. No evidence of aorti c stenosis. Thrombosis right iliac artery with filling of the right femoral artery through the bypass graft which appears widely patent. Diffuse plaque formation in the femoral arteries bilaterally with stenoses probably up to 60-70%. Thrombosis left posterior tibial artery.
[2019-03-17] MEDS ORDERED: ORPHENADRINE 30 MG/ML 2 ML VIAL IVP STA (15:02)
[2019-03-17] MEDS ORDERED: KETOROLAC 30 MG/ML 1 ML VIAL IVP STA (15:02)
[2019-03-17 16:42] LABS: Partial Thromboplastin Time 25.7 sec (22.0-30.0); Prothrombin Time 10.8 sec (9.0-12.0)
== END 2019-03-17 16:05 | disposition home or self-care (01) ==
LOC: EC 12:37
DX: M54.16 Radiculopathy, lumbar region (principal); I99.9 Unspecified disorder of circulatory system; M79.604 Pain in right leg; J44.9 Chronic obstructive pulmonary disease, unspecified; E78.5 Hyperlipidemia, unspecified; I10 Essential (primary) hypertension; F17.200 Nicotine dependence, unspecified, uncomplicated; Z79.51 Long term (current) use of inhaled steroids; Z79.899 Other long term (current) drug therapy; Z53.20 Procedure and treatment not carried out because of patient's decision for unspecified reasons; Z88.2 Allergy status to sulfonamides; Z95.828 Presence of other vascular implants and grafts; Z95.5 Presence of coronary angioplasty implant and graft
CPT/HCPCS: 36415; 80048; 85025; 85610; 85730; 75635; 99284; 96374; 96375; 96361; J2270; J2405; Q9967

== ENCOUNTER → 2019-04-16 | Outpatient (CLI) | payer BC ==
--- NOTE | 2019-04-17 21:57 | CT ---
EXAMINATION TYPE: CT lumbar spine wo con DATE OF EXAM: 04/16/2019 COMPARISON: None HISTORY: low back pain, no injury TECHNIQUE: Contiguous axial scanning of the lumbar spine without IV contrast. Coronal and sagittal re constructions performed. CT DLP: 976 mGycm Automated exposure control for dose reduction was used. FINDINGS: Emphysematous change in the visualized lower lungs. Aorto left iliac endovascular stent graft evaluated on recent CT angiography study. Cholecystectomy c lips. Degenerative spurring at the bilateral SI joints. Vertebral body heights are preserved. Facet arthropathy mid to lower lumbar spine with trace grade 1 anterolisthesis of L4-L5. Remaining alignment is maintained. Mild multilevel degenerative disc disease with mild disc height loss and disc bulging, more moderate degenerative change at L5-S1 with vacuum phenomenon also noted. No large focal disc herniation or haroon canal compromise is seen by CT. On the left, changes result in moderate to severe neural foraminal stenosis at L5-S1 and moderate at L4-L5. Mild at L3-L4. On the right, changes result in severe neuroforaminal stenosis at L5-S1 and moderate at L4-L5. Mild a t L3-L4. IMPRESSION: 1. MILD MULTILEVEL DEGENERATIVE DISC DISEASE, MORE MODERATE AT L5-S1. THERE ARE BULGING DISKS THROUGH OUT WITHOUT HAROON CANAL COMPROMISE SEEN BY CT. 2. ADDITIONAL FACET ARTHROPATHY MID TO LOWER LUMBAR SPINE WITH TRACE GRADE 1 ANTEROLISTHESIS AT L4-L5 . 3. CHANGES RESULT IN VARIABLE NEUROFORAMINAL STENOSES FROM L3 THROUGH S1 LEVELS, SEVERE ON THE RIGHT AT L5-S1 AND MODERATE TO SEVERE ON THE LEFT. MODERATE ON BOTH SIDES AT L4-L5 AND MILD ON BOTH SIDES A T L3-L4.
== END | disposition home or self-care (01) ==
LOC: RADCTMAIN 14:30
PROVIDERS: ATTEND Physical Medicine & Rehabilitation
DX: M48.061 Spinal stenosis, lumbar region without neurogenic claudication (principal); M48.07 Spinal stenosis, lumbosacral region; M51.16 Intervertebral disc disorders with radiculopathy, lumbar region; M51.17 Intervertebral disc disorders with radiculopathy, lumbosacral region; M46.96 Unspecified inflammatory spondylopathy, lumbar region
CPT/HCPCS: 72131